=== PATIENT | female | born 1985 | race Hispanic/Latino ===

== ENCOUNTER 2018-05-16 00:53 | Emergency (ER) | payer OTHER ==
[2018-05-16] MEDS ORDERED: NA CHLORIDE 0.9% 1,000 ML ONE (01:36)
[2018-05-16] MEDS ORDERED: DIPHENOX/ATROP SULF 1 TAB PO ONE (02:00)
[2018-05-16] MEDS ORDERED: ONDANSETRON 4 MG/2 ML VIAL ONE (02:01)
[2018-05-16] MEDS ORDERED: MORPHINE 4 MG/ML SYR ONE (02:01)
[2018-05-16 02:48] LABS: MPV 8.5 fL (7.6-11.3)
[2018-05-16 03:02] LABS: ALT/SGPT 26 U/L (12-78); AST/SGOT 21 U/L (15-37); Albumin 3.1 g/dL (3.4-5.0); Alkaline Phosphatase 114 U/L (45-117); Amylase Level 48 U/L (25-115); BUN Blood Urea Nitrogen 14 mg/dL (7-18); Bicarbonate 23 mmol/L (21-32); Bilirubin Direct < 0.1 mg/dL (0-0.2); Bilirubin Total 0.2 mg/dL (0.2-1.0); Glucose Level 115 mg/dL (74-106); Lipase 80 U/L (73-393); Potassium 4.3 mmol/L (3.5-5.1); Protein, Total 7.5 g/dL (6.4-8.2); Sodium Level 140 mmol/L (136-145)
[2018-05-16 03:26] LABS: Absolute Lymphocytes (CBC) 3.1 K/uL (0.7-4.9); Absolute Monocytes 0.6 K/uL (0.1-1.3); Absolute Neutrophil 8.9 K/uL (1.8-8.0); Basophils % 0.4 % (0-1.3); Eosinophils % 2.6 % (0-4.4); Hematocrit 35.2 % (36.0-45.0); Lymphocytes % 23.8 % (15.3-44.8); MCH 27.1 pg (27.0-35.0); Monocytes % 4.4 % (3.3-12.3); RBC Red Blood Cell Count 4.29 M/uL (3.86-4.86)
--- NOTE | 2018-05-16 03:41 | ER ---
Nurse's Notes [facility] Name: Tatiana Gama Age: 32 yrs Sex: Female : 1985 Arrival Date: 05/16/2018 Time: 00:56 Bed 7 Private MD: Diagnosis: Acute headache. Gastroenteritis. Leukocytosis Presentation: 05/16 01:14 Presenting complaint: Patient states: Pt reports he started having diarrhea and ea migraines one week ago. She started having vomiting x 2 tonight and has been feeling tired. Transition of care: patient was not received from another setting of care. Onset of symptoms was May 16, 2018. Risk Assessment: Do you want to hurt yourself or someone else? Patient reports no desire to harm self or others. Initial Sepsis Screen: Does the patient meet any 2 criteria? HR > 90 bpm. Yes Does the patient have a suspected source of infection? No. Patient's initial sepsis screen is negative. Care prior to arrival: None. 01:14 Method Of Arrival: Ambulatory ea 01:14 Acuity: VICENTE 3 ea Triage Assessment: 01:22 General: Appears in no apparent distress. Behavior is calm, cooperative, appropriate ea for age. Pain: Complains of pain in headache Pain currently is 7 out of 10 on a pain scale. Pain began 1 week ago Is intermittent. EENT: No signs and/or symptoms were reported regarding the EENT system. Neuro: Level of Consciousness is awake, alert, obeys commands, Oriented to person, place, time. Cardiovascular: Patient's skin is warm and dry. Respiratory: Airway is patent Respiratory effort is even, unlabored, Respiratory pattern is regular, symmetrical. GI: Abdomen is non-distended, obese, Reports diarrhea, nausea, vomiting. : No signs and/or symptoms were reported regarding the genitourinary system. Derm: Skin is pink, warm \T\ dry. Musculoskeletal: No signs and/or symptoms reported regarding the musculoskeletal system. 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 - Social history:: Smoking status: Patient/guardian denies using tobacco. - Ebola Screening: : No symptoms or risks identified at this time. Screenin:29 Abuse screen: Denies threats or abuse. Nutritional screening: No deficits noted. ea Tuberculosis screening: No symptoms or risk factors identified. Fall Risk None identified. Assessment: 02:00 Reassessment: see triage assessment. GI: Abdomen is non-distended, Bowel sounds present ea X 4 quads. 03:12 Reassessment: Pt resting with eyes closed, respirations even and unlabored. chest ea expansions even and symmetrical. No s/s of pain or discomfort noted at this time. 03:54 Reassessment: Patient and/or family updated on plan of care and expected duration. Pain ea level reassessed. Patient is alert, oriented x 3, equal unlabored respirations, skin warm/dry/pink. Discharge instruction given to patient, verbalized the understanding of instruction. Patient states feeling better. Patient states symptoms have improved. Vital Signs: 01:23 BP 168 / 112; Pulse 109; Resp 18; Temp 98.1; Pulse Ox 99% on R/A; Weight 148.32 kg; ea Height 5 ft. 11 in. (180.34 cm); Pain 5/10; 02:06 BP 137 / 81; Pulse 92; Resp 18; Pulse Ox 97% on R/A; ea 03:13 BP 134 / 74; Pulse 89; Resp 18; Pulse Ox 98% on R/A; ea 01:23 Body Mass Index 45.61 (148.32 kg, 180.34 cm) ea ED Course: 00:56 Patient arrived in ED. ds1 00:59 Maria M Oliveros RN is Primary Nurse. lp1 01:01 Mark Cortes MD is Attending Physician. pkl 01:18 Arm band placed on right wrist. Patient placed in an exam room, on a stretcher, on ea pulse oximetry. 01:19 Triage completed. ea 01:30 Patient has correct armband on for positive identification. Bed in low position. Call ea light in reach. Side rails up X 1. 01:38 Inserted saline lock: 20 gauge in right antecubital area, using aseptic technique. ea Blood collected. 03:54 No provider procedures requiring assistance completed. IV discontinued, intact, ea bleeding controlled, No redness/swelling at site. Pressure dressing applied. Administered Medications: 01:52 Drug: NS 0.9% 1000 ml Route: IV; Rate: 1000 ml; Site: right antecubital; ea 03:56 Follow up: Response: No adverse reaction; IV Status: Completed infusion; IV Intake: ea 1000ml 02:05 Drug: morphine 2 mg Route: IVP; Site: right antecubital; ea 03:30 Follow up: Response: No adverse reaction; Pain is decreased ea 03:30 Follow up: Response: No adverse reaction; Pain is decreased ea 02:05 Drug: Zofran 4 mg Route: IVP; Site: right antecubital; ea 03:42 Follow up: Response: No adverse reaction; Pain is decreased ea 02:05 Drug: LoMOTIL 2 tabs Route: PO; ea 03:30 Follow up: Response: No adverse reaction ea 03:47 Drug: Cipro 500 mg Route: PO; ea 03:56 Follow up: Response: No adverse reaction; Medication administered at discharge. ea Intake: 03:56 IV: 1000ml; Total: 1000ml. ea Outcome: 03:40 Discharge ordered by . brenda 03:55 Discharged to home ambulatory. ea 03:55 Condition: improved 03:55 Discharge instructions given to patient, Instructed on discharge instructions, follow up and referral plans. medication usage, Demonstrated understanding of instructions, follow-up care, medications. 03:57 Patient left the ED. ea Signatures: Mark Cortes MD MD pkl Sanford, Demi ds1 Maria M Oliveros RN RN lp1 Leonor Nicole RN RN ea Corrections: (The following items were deleted from the chart) 01:31 01:22 Pain: Denies pain. ea ea
--- NOTE | 2018-05-16 03:41 | EDPHYS ---
Physician Documentation [facility] Name: Tatiana Gama Age: 32 yrs Sex: Female : 1985 Arrival Date: 05/16/2018 Time: 00:56 Bed 7 Private MD: ED Physician Mark Cortes HPI: 05/16 01:34 This 32 yrs old Female presents to ER via Ambulatory with complaints of pkl Vomiting/Diarrhea, Headache, General Weakness. 01:34 The patient presents to the emergency department with nausea, vomiting, diarrhea. pkl Onset: The symptoms/episode began/occurred 1 week(s) ago. Associated signs and symptoms: Pertinent positives: headache. 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 - Social history:: Smoking status: Patient/guardian denies using tobacco. - Ebola Screening: : No symptoms or risks identified at this time. ROS: 01:34 Eyes: Negative for injury, pain, redness, and discharge, ENT: Negative for injury, pkl pain, and discharge, Neck: Negative for injury, pain, and swelling, Cardiovascular: Negative for chest pain, palpitations, and edema, Respiratory: Negative for shortness of breath, cough, wheezing, and pleuritic chest pain. 01:34 Abdomen/GI: Positive for nausea, vomiting, and diarrhea. 01:34 Back: Negative for acute changes. 01:34 : Negative for urinary symptoms. 01:34 MS/extremity: Negative for acute changes. 01:34 Skin: Negative for rash. 01:34 Neuro: Positive for headache. Exam: 01:34 Head/Face: Normocephalic, atraumatic. Eyes: Pupils equal round and reactive to light, pkl extra-ocular motions intact. Lids and lashes normal. Conjunctiva and sclera are non-icteric and not injected. Cornea within normal limits. Periorbital areas with no swelling, redness, or edema. ENT: Nares patent. No nasal discharge, no septal abnormalities noted. Tympanic membranes are normal and external auditory canals are clear. Oropharynx with no redness, swelling, or masses, exudates, or evidence of obstruction, uvula midline. Mucous membranes moist. Neck: Trachea midline, no thyromegaly or masses palpated, and no cervical lymphadenopathy. Supple, full range of motion without nuchal rigidity, or vertebral point tenderness. No Meningismus. Chest/axilla: Normal chest wall appearance and motion. Nontender with no deformity. No lesions are appreciated. Cardiovascular: Regular rate and rhythm with a normal S1 and S2. No gallops, murmurs, or rubs. Normal PMI, no JVD. No pulse deficits. Respiratory: Lungs have equal breath sounds bilaterally, clear to auscultation and percussion. No rales, rhonchi or wheezes noted. No increased work of breathing, no retractions or nasal flaring. 01:34 Abdomen/GI: Bowel sounds: active, Palpation: abdomen is soft and non-tender, in all quadrants. 01:34 Back: Exam negative for acute changes. 01:34 : Exam negative for acute changes. 01:34 Musculoskeletal/extremity: Exam is negative for acute changes. 01:34 Skin: Exam negative for rash. 01:34 Neuro: Orientation: is normal, Mentation: is normal, Cranial nerves: grossly normal, Motor: is normal. Vital Signs: 01:23 BP 168 / 112; Pulse 109; Resp 18; Temp 98.1; Pulse Ox 99% on R/A; Weight 148.32 kg; ea Height 5 ft. 11 in. (180.34 cm); Pain 5/10; 02:06 BP 137 / 81; Pulse 92; Resp 18; Pulse Ox 97% on R/A; ea 03:13 BP 134 / 74; Pulse 89; Resp 18; Pulse Ox 98% on R/A; ea 01:23 Body Mass Index 45.61 (148.32 kg, 180.34 cm) ea MDM: 01:02 Patient medically screened. pkl 03:39 Data reviewed: vital signs, nurses notes, lab test result(s). pkl 05/16 01:32 Order name: Amylase, Serum; Complete Time: 03:08 pkl 05/16 01:32 Order name: Basic Metabolic Panel; Complete Time: 03:08 pkl 05/16 01:32 Order name: CBC with Diff; Complete Time: 03:35 pkl 05/16 01:32 Order name: Hepatic Function; Complete Time: 03:08 pkl 05/16 01:32 Order name: Lipase; Complete Time: 03:08 pkl 05/16 01:32 Order name: Urine Microscopic Only pk 05/16 03:39 Order name: Urine Dipstick--Ancillary (enter results) mn 05/16 03:39 Order name: Urine --Ancillary (enter results) mn 05/16 01:32 Order name: IV Saline Lock; Complete Time: 01:53 pkl 05/16 01:32 Order name: Labs collected and sent; Complete Time: :53 pkl 05/16 01:32 Order name: Urine Dipstick-Ancillary (obtain specimen); Complete Time: 03:42 pkl Administered Medications: 01:52 Drug: NS 0.9% 1000 ml Route: IV; Rate: 1000 ml; Site: right antecubital; ea 03:56 Follow up: Response: No adverse reaction; IV Status: Completed infusion; IV Intake: ea 1000ml 02:05 Drug: morphine 2 mg Route: IVP; Site: right antecubital; ea 03:30 Follow up: Response: No adverse reaction; Pain is decreased ea 03:30 Follow up: Response: No adverse reaction; Pain is decreased ea 02:05 Drug: Zofran 4 mg Route: IVP; Site: right antecubital; ea 03:42 Follow up: Response: No adverse reaction; Pain is decreased ea 02:05 Drug: LoMOTIL 2 tabs Route: PO; ea 03:30 Follow up: Response: No adverse reaction ea 03:47 Drug: Cipro 500 mg Route: PO; ea 03:56 Follow up: Response: No adverse reaction; Medication administered at discharge. ea Disposition: 05/16/18 03:40 Discharged to Home. Impression: Acute headache. Gastroenteritis. Leukocytosis. - Condition is Stable. - Prescriptions for Ultram 50 mg Oral Tablet - take 1 tablet by ORAL route every 8 hours As needed; 15 tablet. Zofran 4 mg Oral Tablet - take 1 tablet by ORAL route every 12 hours As needed; 6 tablet. Cipro 500 mg Oral Tablet - take 1 tablet by ORAL route every 12 hours for 5 days; 10 tablet. - Medication Reconciliation Form, Thank You Letter, Antibiotic Education, Prescription Opioid Use form. - Follow up: Private Physician; When: 2 - 3 days; Reason: Re-evaluation by your physician. - Problem is new. - Symptoms have improved. Signatures: Dispatcher [employer] EDIN Mark Cortes MD MD pkLeonor Mesa, RN RN ea Corrections: (The following items were deleted from the chart) 03:28 01:32 Creatinine for Radiology+C.LAB.BRZ ordered. [facility] 03:57 03:40 05/16/2018 03:40 Discharged to Home. Impression: Acute headache. Gastroenteritis. ea Leukocytosis. Condition is Stable. Forms are Medication Reconciliation Form, Thank You Letter, Antibiotic Education, Prescription Opioid Use. Follow up: Private Physician; When: 2 - 3 days; Reason: Re-evaluation by your physician. Problem is new. Symptoms have improved. pkl
[2018-05-16] MEDS ORDERED: CIPROFLOXACIN HCL 500 MG TAB ONE (03:47)
[2018-05-16 03:52] LABS: Urine Blood NEGATIVE (NEG); Urine Glucose NEGATIVE (NEG); Urine Protein NEGATIVE (NEG); Urine Specific Gravity >1.030 (1.005-1.030); Urine pH 5.5 (5.0-7.0)
[2018-05-16 03:59] LABS: Urine Bacteria <20 /HPF (<20); Urine Culture Reflex Order NOT NEEDED; Urine RBC <5 /HPF (NONE SEEN)
== END 2018-05-16 03:57 | disposition home or self-care (01) ==
LOC: ER 00:53
DX: R51 Headache (principal); K52.9 Noninfective gastroenteritis and colitis, unspecified; D72.829 Elevated white blood cell count, unspecified; J45.909 Unspecified asthma, uncomplicated; Z88.6 Allergy status to analgesic agent
CPT/HCPCS: 80048; 80076; 81003; 81015; 81025; 82150; 83690; 85025; 96361; 96374; 96375; 99284; J2405; J7030

== ENCOUNTER 2018-09-17 17:34 | Emergency (ER) | payer OTHER ==
--- OUTSIDE RECORDS SUMMARY | 2018-09-17 17:36 | XMS REPORT | Continuity of Care Document ---
:1985 Author Organization Interface Problems Problem Status Onset Classification Date Comments Source Date Reported [facility] Medications Medication Details Route Status Patient Ordering Order Source Instructions Provider Date Allergies, Adverse Reactions, Alerts Substance Category Reaction Severity Reaction Status Date Comments Source type Reported Immunizations Immunization Date Given Site Status Last Updated Comments Source Results Order Name Results Value Reference Date Interpretation Comments Source Range Hysterosalp Hysterosalpi Patient Name: MAITE SWANSON 07/17 - [facility] ingography ngography DX /2017 - [place] DX : 1985; Age: 32 years y/o Female MR: [id number] Read by: Jabier Lira MD Dictated Date/time: 07/17/18 13:58 Electronically Signed by: Jabier Lira MD 07/17/18 14:10 FINAL REPORT * HYSTEROSALPINGOGRAM, INTRAOPERATIVE, INTERPRETATION. HISTORY: Infertility. COMMENT: 4 digital C-arm intraprocedural radiographs of the abdomen were obtained during hysterosalpingography. It is indicated the fluoroscopy time was 26.9 seconds. Radiation dose: 15.66 mGy. FINDINGS: The initial image demonstrates a scope into the uterine cavity. A small amount contrast was injected. Next, left sided salpingography was performed. Finally, right sided salpingography was performed. The uterine canal appears to be normal in shape and appearance. The left fallopian tube is visualized and normal in caliber and appearance. There appears to be spillage into the peritoneal cavity which would indicate patency. On the right, the tube is identified and is normal in appearance and caliber. No spillage was demonstrated on the right on these images. On the final image, venous intravasation is noted. 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 SL: [id number] Vital Signs Vital Sign Value Date Comments Source Encounters Location Location Encounter Encounter Reason Attending ADM DC Status Source Details Type Number For Provider Date Date Visit Procedures Procedure Code Date Perfomer Comments Source
[2018-09-17] MEDS ORDERED: IPRATROPIUM BROM 0.5MG/2.5ML ONE (18:07)
[2018-09-17] MEDS ORDERED: ALBUTEROL 2.5 MG/3 ML NEB SOL ONE (18:07)
[2018-09-17] MEDS ORDERED: predniSONE 20 MG TAB ONE (18:35)
--- NOTE | 2018-09-17 19:17 | ER ---
Nurse's Notes [facility] Name: Tatiana Parrish Age: 32 yrs Sex: Female : 1985 Arrival Date: 09/17/2018 Time: 17:46 Bed 7 Private MD: Diagnosis: Unspecified asthma with (acute) exacerbation Presentation: 09/17 17:46 Presenting complaint: Patient states: SOB after moving and being exposed to dust. sv Transition of care: patient was not received from another setting of care. Onset of symptoms was September 15, 2018. Care prior to arrival: None. 17:46 Method Of Arrival: Ambulatory sv 17:46 Acuity: VICENTE 3 sv 17:54 Risk Assessment: Do you want to hurt yourself or someone else? Patient reports no bp desire to harm self or others. Initial Sepsis Screen: Does the patient meet any 2 criteria? HR > 90 bpm. Does the patient have a suspected source of infection? No. Patient's initial sepsis screen is negative. Triage Assessment: 17:47 General: Appears in no apparent distress. uncomfortable, Behavior is calm, cooperative. sv Neuro: Level of Consciousness is awake, alert, obeys commands, Oriented to person, place, time, situation, Moves all extremities. Full function Gait is steady, Speech gets winded with speaking. Respiratory: Respiratory effort is even, labored, Respiratory pattern is tachypnea. GI: Reports nausea. 17:54 Pain: Denies pain. 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 - Social history:: Smoking status: Patient/guardian denies using tobacco. - Ebola Screening: : Patient negative for fever greater than or equal to 101.5 degrees Fahrenheit, and additional compatible Ebola Virus Disease symptoms Patient denies exposure to infectious person Patient denies travel to an Ebola-affected area in the 21 days before illness onset No symptoms or risks identified at this time. Screenin:05 Abuse screen: Denies threats or abuse. Denies injuries from another. Nutritional bp screening: No deficits noted. Tuberculosis screening: No symptoms or risk factors identified. Fall Risk None identified. Assessment: 17:50 General: Appears in no apparent distress. comfortable, Behavior is calm, cooperative, bp appropriate for age. Pain: Denies pain. Neuro: Level of Consciousness is awake, alert, obeys commands, Oriented to person, place, time, situation, Appropriate for age. Cardiovascular: Rhythm is sinus tachycardia. Respiratory: Airway is patent Respiratory effort is labored, Respiratory pattern is symmetrical, tachypnea Breath sounds with wheezes bilaterally. GI: No signs and/or symptoms were reported involving the gastrointestinal system. : No signs and/or symptoms were reported regarding the genitourinary system. EENT: No deficits noted. Derm: No deficits noted. Musculoskeletal: Circulation, motion, and sensation intact. Range of motion: intact in all extremities. 18:51 Reassessment: NEBS COMPLETED, PT STATING RELIEF OF S/S. bp 19:15 Reassessment: Patient appears in no apparent distress at this time. Patient and/or cc3 family updated on plan of care and expected duration. Pain level reassessed. Patient is alert, oriented x 3, equal unlabored respirations, skin warm/dry/pink. Received patient as a case of asthma exacerbation. No IV cannula in situ. 19:20 Reassessment: Dr. Mitchell discharged the patient home with prescription given. Patient cc3 left ER vitally stable and ambulatory. Vital Signs: 17:46 BP 156 / 114; Pulse 76; Resp 26; Temp 98; Pulse Ox 98% ; Weight 150.59 kg; Height 5 ft. sv 11 in. (180.34 cm); Pain 4/10; 18:51 BP 136 / 75; Pulse 100; Resp 16; Pulse Ox 100% ; bp 19:15 BP 146 / 85; Pulse 99; Resp 20 S; Temp 98.4(O); Pulse Ox 100% on R/A; cc3 17:46 Body Mass Index 46.30 (150.59 kg, 180.34 cm) sv ED Course: 17:46 Patient arrived in ED. sv 17:46 Triage completed. sv 17:47 Arm band placed on. sv 17:53 Barrie Vidal, CAITLYN is Primary Nurse. bp 17:54 Keo Mitchell MD is Attending Physician. gs 18:05 Patient has correct armband on for positive identification. Bed in low position. Call bp light in reach. Side rails up X2. 19:20 No provider procedures requiring assistance completed. Patient did not have IV access cc3 during this emergency room visit. Administered Medications: 18:03 Drug: Albuterol 2.5 mg Route: Inhalation; bp 18:03 Drug: AtroVENT Aerosol 0.5 mg Route: Inhalation; bp 18:15 Drug: predniSONE 40 mg Route: PO; bp 18:36 Follow up: Response: No adverse reaction bp Outcome: 19:15 Discharge ordered by . sabina 19:20 Discharged to home ambulatory. cc3 19:20 Condition: stable 19:20 Discharge instructions given to patient, Instructed on discharge instructions, follow up and referral plans. medication usage, Demonstrated understanding of instructions, follow-up care, medications, Prescriptions given X 2. 19:23 Patient left the ED. cc3 Signatures: Vesta Pelaez, RN Keo Saeed MD MD gs Peltier, Brian, RN RN Yoana Wolfe cc3
--- NOTE | 2018-09-17 19:17 | EDPHYS ---
Physician Documentation [facility] Name: Tatiana Parrish Age: 32 yrs Sex: Female : 1985 Arrival Date: 09/17/2018 Time: 17:46 Bed 7 Private MD: ED Physician Keo Mitchell HPI: 09/17 19:07 This 32 yrs old Female presents to ER via Ambulatory with complaints of Asthma gs Exacerbation. 19:07 Onset: The symptoms/episode began/occurred today. Modifying factors: The symptoms are gs alleviated by prescription meds, the symptoms are aggravated by. 19:11 Associated signs and symptoms: Pertinent negatives: chest pain, choking, palpitations. gs Severity of symptoms: At their worst the symptoms were moderate in the emergency department the symptoms are unchanged. The patient has experienced similar episodes in the past, a few times. [employer] HEL[employer]: 17:54 LMP N/A - Irregular menses bp Historical: - Allergies: 17:47 Imitrex; sv - PMHx: 17:47 Asthma; Migraines; Obesity; sv - PSHx: 17:47 None; sv - Immunization history:: Adult Immunizations up to date. - Social history:: Smoking status: Patient/guardian denies using tobacco. - Ebola Screening: : Patient negative for fever greater than or equal to 101.5 degrees Fahrenheit, and additional compatible Ebola Virus Disease symptoms Patient denies exposure to infectious person Patient denies travel to an Ebola-affected area in the 21 days before illness onset No symptoms or risks identified at this time. ROS: 19:11 All other systems are negative. gs Exam: 19:11 Head/Face: Normocephalic, atraumatic. Eyes: Pupils equal round and reactive to light, gs extra-ocular motions intact. Lids and lashes normal. Conjunctiva and sclera are non-icteric and not injected. Cornea within normal limits. Periorbital areas with no swelling, redness, or edema. ENT: Nares patent. No nasal discharge, no septal abnormalities noted. Tympanic membranes are normal and external auditory canals are clear. Oropharynx with no redness, swelling, or masses, exudates, or evidence of obstruction, uvula midline. Mucous membranes moist. Neck: Trachea midline, no thyromegaly or masses palpated, and no cervical lymphadenopathy. Supple, full range of motion without nuchal rigidity, or vertebral point tenderness. No Meningismus. Chest/axilla: Normal chest wall appearance and motion. Nontender with no deformity. No lesions are appreciated. Cardiovascular: Regular rate and rhythm with a normal S1 and S2. No gallops, murmurs, or rubs. Normal PMI, no JVD. No pulse deficits. Abdomen/GI: Soft, non-tender, with normal bowel sounds. No distension or tympany. No guarding or rebound. No evidence of tenderness throughout. Back: No spinal tenderness. No costovertebral tenderness. Full range of motion. Skin: Warm, dry with normal turgor. Normal color with no rashes, no lesions, and no evidence of cellulitis. MS/ Extremity: Pulses equal, no cyanosis. Neurovascular intact. Full, normal range of motion. Neuro: Awake and alert, GCS 15, oriented to person, place, time, and situation. Cranial nerves II-XII grossly intact. Motor strength 5/5 in all extremities. Sensory grossly intact. Cerebellar exam normal. Normal gait. 19:11 Constitutional: The patient appears in no acute distress, alert, awake. 19:11 Respiratory: the patient does not display signs of respiratory distress, Respirations: 19:13 Respiratory: Respirations: normal, no acute changes, is not noted, Breath sounds: gs wheezing: expiratory that is mild. Vital Signs: 17:46 BP 156 / 114; Pulse 76; Resp 26; Temp 98; Pulse Ox 98% ; Weight 150.59 kg; Height 5 ft. sv 11 in. (180.34 cm); Pain 4/10; 18:51 BP 136 / 75; Pulse 100; Resp 16; Pulse Ox 100% ; bp 19:15 BP 146 / 85; Pulse 99; Resp 20 S; Temp 98.4(O); Pulse Ox 100% on R/A; cc3 17:46 Body Mass Index 46.30 (150.59 kg, 180.34 cm) sv MDM: 17:56 Patient medically screened. gs 19:13 Differential diagnosis: acute asthma, exercise-induced asthma, reactive airway. Data gs reviewed: vital signs, nurses notes. Response to treatment: the patient's symptoms have markedly improved after treatment, and as a result, I will discharge patient. Administered Medications: 18:03 Drug: Albuterol 2.5 mg Route: Inhalation; bp 18:03 Drug: AtroVENT Aerosol 0.5 mg Route: Inhalation; bp 18:15 Drug: predniSONE 40 mg Route: PO; bp 18:36 Follow up: Response: No adverse reaction bp Disposition: 09/17/18 19:15 Discharged to Home. Impression: Unspecified asthma with (acute) exacerbation. - Condition is Stable. - Discharge Instructions: Asthma, Adult. - Prescriptions for Prednisone 20 mg Oral Tablet - take 1 tablet by ORAL route once daily for 5 days; 5 tablet. Albuterol Sulfate 90 mcg/actuation - inhale 1-2 puff by INHALATION route every 4-6 hours; 1 Inhaler. - Medication Reconciliation Form, Thank You Letter, Antibiotic Education, Prescription Opioid Use form. - Follow up: Private Physician; When: 2 - 3 days; Reason: Re-evaluation by your physician. Signatures: Vesta Pelaez RN RN Keo Mitchell MD MD Barrie Vidal RN RN Yoana Burrows cc3 Corrections: (The following items were deleted from the chart) 19:23 19:15 09/17/2018 19:15 Discharged to Home. Impression: Unspecified asthma with (acute) cc3 exacerbation. Condition is Stable. Forms are Medication Reconciliation Form, Thank You Letter, Antibiotic Education, Prescription Opioid Use. Follow up: Private Physician; When: 2 - 3 days; Reason: Re-evaluation by your physician.
== END 2018-09-17 19:23 | disposition home or self-care (01) ==
LOC: ER 17:34
DX: J45.901 Unspecified asthma with (acute) exacerbation (principal)
CPT/HCPCS: 99284; J7512